=== PATIENT | female | born 1995 | race Hispanic/Latino ===

== ENCOUNTER 2020-11-12 12:07 | Emergency (ER) | payer SELFPAY ==
[~2020-11-12] VITALS: Ht 165.1 cm; Wt 133.3 kg
--- NOTE | 2020-11-12 13:12 | ECGEPIP ---
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
[2020-11-12] MEDS ORDERED: NS 1,000 ML IV ONE (13:20)
[2020-11-12 13:42] LABS: BASO # 0.1 10^3/uL (0.0-0.2); BASO % 0.3 % (0.0-1.0); EOS # 0.1 10^3/uL (0.0-0.5); EOS % 0.2 % (0.0-3.0); HEMATOCRIT 35.6 % (36.0-47.0); HEMOGLOBIN 10.8 g/dl (12.0-15.5); LYMPH # 2.4 10^3/uL (1.5-5.0); LYMPH % 9.6 % (24.0-44.0); MEAN CORPUSCULAR HEMOGLOBIN 21.9 pg (27.0-33.0); MEAN CORPUSCULAR HGB CONC 30.3 g/dl (32.0-36.5); MEAN CORPUSCULAR VOLUME 72.2 fl (80.0-96.0); MONO # 0.9 10^3/uL (0.0-0.8); MONO % 3.4 % (2.0-8.0); NEUTROPHILS # 21.5 10^3/uL (1.5-8.5); PLATELET COUNT, AUTOMATED 380 10^3/uL (150-450); RED BLOOD COUNT 4.93 10^6/uL (4.00-5.40)
[2020-11-12 14:00] LABS: ERYTHROCYTE SEDIMENTATION RATE 80 mm/hr (0-20)
[2020-11-12 14:15] LABS: BLOOD UREA NITROGEN 8 MG/DL (7-18); C REACTIVE PROTEIN QUANTITATIV 3.56 MG/DL (0.00-0.30); CALCIUM LEVEL 8.7 MG/DL (8.5-10.1); CARBON DIOXIDE LEVEL 24 MEQ/L (21-32); CHLORIDE LEVEL 103 MEQ/L (98-107); CK-MB VALUE MASS < 1.0 NG/ML (<3.6); CPK CREATINE PHOSPHOKINASE 60 U/L (26-192); CREATININE FOR GFR 0.71 MG/DL (0.55-1.30); GLOMERULAR FILTRATION RATE > 60.0 (>60); GLUCOSE, FASTING 133 MG/DL (70-100); MB/CK RELATIVE INDEX 1.67 (< OR =4); SODIUM LEVEL 136 MEQ/L (136-145); TROPONIN I < 0.02 NG/ML (< 0.10)
[2020-11-12 15:10] LABS: HCG, SERUM QUALITATIVE NEGATIVE (NEGATIVE)
[2020-11-12] MEDS ORDERED: ISOVUE-370 76% 100ML VIAL As Ordered ONE (15:58)
--- NOTE | 2020-11-12 17:17 | REP ---
INDICATION: chest pain, leukocytosis. COMPARISON: None. TECHNIQUE: Scans were obtained during contrast administration. FINDINGS: Two 3 mm subpleural nodules in the right upper lobe. The lungs are otherwise clear. [address] year follow-up CT recommended. No evidence of pulmonary embolus paired Thoracic aorta and great vessels unremarkable. No dissection or aneurysm. No hilar or mediastinal adenopathy. No pleural fluid or thickening. Enlarged liver with severe fatty infiltration. IMPRESSION: No evidence of pulmonary embolus. 2 3 mm subpleural nodules right upper lobe. Enlarged liver with extensive fatty infiltration. <Electronically signed by Jero Aragon > 11/12/20 [id number]
[2020-11-12] MEDS ORDERED: KETOROLAC 30 MG/ML 1ML VIAL IV ONE (17:40)
[2020-11-12] MEDS ORDERED: NAPR-885 PO (17:45)
[2020-11-12 18:16] VITALS: BP 131/78
--- NOTE | 2020-11-14 12:53 | ED PDOC ---
Post-Departure Follow-Up cta chest faxed to [facility] for fu Ariane Wilcox MD Nov 14, 2020 12:53
[2020-11-15 13:08] LABS: ANTINUCLEAR ANTIBODIES DIRECT Negative (Negative)
== END 2020-11-12 18:38 | disposition home or self-care (01) ==
LOC: M ED 12:07
DX: R07.9 Chest pain, unspecified (principal); K76.0 Fatty (change of) liver, not elsewhere classified; R70.0 Elevated erythrocyte sedimentation rate; R91.1 Solitary pulmonary nodule; K75.9 Inflammatory liver disease, unspecified; R00.0 Tachycardia, unspecified
CPT/HCPCS: 71275; 80048; 82550; 82553; 84484; 84703; 85025; 85379; 85652; 86038; 86140; 93005; 93041; 96361; 96374; 99285; J1885; Q9967; U0002